=== PATIENT | female | born 2000 | race Caucasian/White ===

== ENCOUNTER 2022-03-10 06:52 | Inpatient (IN) | payer OTHER, MEDICAID ==
[2022-03-10] MEDS ORDERED: Acetaminophen 325 MG Tab PO PRN (19:37)
[2022-03-10] MEDS ORDERED: Nalbuphine 10 MG/0.5 ML Syringe IVPUSH PRN (19:37)
[2022-03-10] MEDS ORDERED: Calcium Carbonate 500 MG Tab.Chew PO PRN (19:37)
[2022-03-10] MEDS ORDERED: Lidocaine 1% 50 ML MDV INJECT ONE (19:37)
[2022-03-10] MEDS ORDERED: Ondansetron 4 MG/2 ML SDV IVPUSH PRN (19:37)
[2022-03-10] MEDS ORDERED: Oxytocin/Lactated Ringers 10 UNIT/1,000 ML BAG IV SCH (19:45)
[2022-03-10] MEDS ORDERED: Ampicillin 2 GM in Sodium Chloride 0.9% 100 ML IV ONE (20:00)
[2022-03-10] MEDS: Lactated Ringers 1,000 ML IV SCH (20:19)
[2022-03-10] MEDS: Oxytocin/Lactated Ringers 10 UNIT/1,000 ML BAG IV SCH (20:20)
[2022-03-11] MEDS ORDERED: Ropivacaine 0.2% PF 2 MG/ML 20 ML SDV ONE
[2022-03-11] MEDS: Ampicillin 1 GM in Sodium Chloride 0.9% 100 ML IV SCH ×3 (00:10→08:26)
[2022-03-11] MEDS ORDERED: fentaNYL 100 MCG/2 ML SDV EPIDUR PRN (02:54)
[2022-03-11] MEDS ORDERED: Bupivacaine/fentaNYL/NS 100 ML Bag EPIDUR PRN (02:54)
[2022-03-11] MEDS ORDERED: diphenhydrAMINE 50 MG/ML SDV IVPUSH PRN (02:54)
[2022-03-11] MEDS ORDERED: ePHEDrine 50 MG/ML SDV IVPUSH PRN (02:54)
[2022-03-11] MEDS: Lactated Ringers 1,000 ML IV SCH (03:52)
[2022-03-11] MEDS: Oxytocin/Lactated Ringers 10 UNIT/1,000 ML BAG IV SCH (06:51)
[2022-03-11] MEDS ORDERED: Lidocaine 1% 50 ML MDV ONE (06:54)
[2022-03-11] MEDS ORDERED: Acetaminophen 325 MG Tab PO PRN (08:27)
[2022-03-11] MEDS ORDERED: Oxytocin/Lactated Ringers 10 UNIT/1,000 ML BAG IV SCH (08:27)
[2022-03-11] MEDS ORDERED: Benzocaine/Menthol 20%-0.5% Spray 78 GM Cannister TOP PRN (08:27)
[2022-03-11] MEDS ORDERED: Hydrocortisone Acetate 25 MG Supp RECTAL PRN (08:27)
[2022-03-11] MEDS ORDERED: Magnesium Hydroxide 400 MG/5 ML Susp 30 ML Cup PO PRN (08:27)
[2022-03-11] MEDS ORDERED: Witch Hazel Medicated Pads 40/Jar TOP PRN (08:27)
[2022-03-11] MEDS: Prenatal Multivitamin with Calcium/Folic Acid/Iron Tab PO SCH (09:48)
[2022-03-11] MEDS: Ibuprofen 600 MG Tab PO PRN ×2 (09:48→16:58)
[2022-03-11] MEDS: Docusate Sodium 100 MG Cap PO PRN (22:14)
[2022-03-12] MEDS: Ibuprofen 600 MG Tab PO PRN ×2 (03:30→15:57)
[2022-03-12] MEDS: Prenatal Multivitamin with Calcium/Folic Acid/Iron Tab PO SCH (14:20)
[2022-03-13] MEDS: Prenatal Multivitamin with Calcium/Folic Acid/Iron Tab PO SCH (09:46)
[2022-03-13] MEDS: Ibuprofen 600 MG Tab PO PRN (09:46)
[2022-03-13] MEDS: Docusate Sodium 100 MG Cap PO PRN (09:46)
== END 2022-03-13 10:35 | disposition home or self-care (01) | DRG 807 ==
LOC: JD.OB 06:52 → OBSVTOIN 03-11 06:52 → JD.OB 03-11 06:53
PROVIDERS: ADMIT Obstetrics & Gynecology; ATTEND Obstetrics & Gynecology
PROC: 10E0XZZ Delivery of Products of Conception, External Approach (ICD-10-PCS; principal; 2022-03-11)
PROC: 0KQM0ZZ Repair Perineum Muscle, Open Approach (ICD-10-PCS; 2022-03-11)
PROC: 10907ZC Drainage of Amniotic Fluid, Therapeutic from Products of Conception, Via Natural or Artificial Opening (ICD-10-PCS; 2022-03-11)
PROC: 3E033VJ Introduction of Other Hormone into Peripheral Vein, Percutaneous Approach (ICD-10-PCS; 2022-03-11)
PROC: 0UQMXZZ Repair Vulva, External Approach (ICD-10-PCS; 2022-03-11)
PROC: 3E0R3BZ Introduction of Anesthetic Agent into Spinal Canal, Percutaneous Approach (ICD-10-PCS; 2022-03-11)
DX: O69.81X0 Labor and delivery complicated by cord around neck, without compression, not applicable or unspecified (principal); Z37.0 Single live birth; Z3A.39 39 weeks gestation of pregnancy; O70.1 Second degree perineal laceration during delivery; O99.824 Streptococcus B carrier state complicating childbirth; O99.214 Obesity complicating childbirth; Z79.82 Long term (current) use of aspirin
CPT/HCPCS: 36415; 51702; 59025; 59409; 85027; 86592; A9270-GY; J0290; J2001; J2590; J2795; J3490; J7120

== ENCOUNTER 2023-12-26 07:03 | Inpatient (IN) | payer OTHER ==
[~2023-12-26 07:03] MED LIST: Bupivacaine 0.25% 10 ML SDV ONE
[2023-12-26] MEDS ORDERED: Lidocaine 1% 50 ML MDV INJECT PRN (07:05)
[2023-12-26] MEDS ORDERED: Ondansetron 4 MG/2 ML SDV IVPUSH PRN (07:05)
[2023-12-26] MEDS ORDERED: Nalbuphine 10 MG/1 ML Vial IVPUSH PRN (07:05)
[2023-12-26] MEDS ORDERED: Sodium Chloride 0.9% 10 ML Syringe FLUSH PRN (07:05)
[2023-12-26] MEDS ORDERED: Oxytocin/0.9 % Sodium Chloride 30 UNIT/500 ML BAG IV SCH (07:15)
[2023-12-26] MEDS: Penicillin G Potassium 5 MILLUNITS in Sodium Chloride 0.9% 100 ML IV SCH (07:43)
[2023-12-26] MEDS: Lactated Ringers 1,000 ML IV SCH (07:50)
[2023-12-26 08:03] LABS: BASOPHILS PERCENT AUTO 0.1 % (0.0-1.0); EOSINOPHILS ABSOLUTE AUTO 0.1 K/mm3 (0.0-0.4); EOSINOPHILS PERCENT AUTO 1.1 % (0.0-6.0); HEMATOCRIT 36.3 % (37.0-47.0); HEMOGLOBIN 11.9 gm/dl (12.0-16.0); IMMATURE GRAN ABSOLUTE AUTO 0.03 K/mm3 (0.00-0.05); IMMATURE GRAN PERCENT AUTO 0.4 % (0.0-0.4); LYMPHOCYTES ABSOLUTE AUTO 1.3 K/mm3 (1.0-4.8); LYMPHOCYTES PERCENT AUTO 16.6 % (24.0-44.0); MEAN CORPUSCULAR HEMOGLOBIN 26.9 pg (28.0-32.0); MEAN CORPUSCULAR HGB CONC 32.8 g/dl (32.0-36.0); MEAN CORPUSCULAR VOLUME 81.9 fl (83.0-99.0); MEAN PLATELET VOLUME 9.6 fl (9.4-12.3); MONOCYTES ABSOLUTE AUTO 0.5 K/mm3 (0.0-0.8); MONOCYTES PERCENT AUTO 6.7 % (0.0-8.0); NEUTROPHILS PERCENT AUTO 75.1 % (41.0-71.0); PLATELET COUNT,PLT 157 K/mm3 (150-400); RED BLOOD CELL COUNT 4.43 M/mm3 (4.10-5.30); WHITE BLOOD CELL COUNT,WBC 7.95 K/mm3 (3.9-11.3)
[2023-12-26] MEDS: Sodium Chloride 0.9% 10 ML Syringe FLUSH SCH (09:49)
[2023-12-26] MEDS ORDERED: ePHEDrine 50 MG/ML SDV IVPUSH PRN (11:59)
[2023-12-26] MEDS ORDERED: diphenhydrAMINE 50 MG/ML SDV IVPUSH PRN (11:59)
[2023-12-26] MEDS: Penicillin G Potassium 2.5 MILLUNITS in Sodium Chloride 0.9% 100 ML IV SCH (12:12)
[2023-12-26] MEDS: Oxytocin/0.9 % Sodium Chloride 30 UNIT/500 ML BAG IV SCH ×2 (13:41→22:35)
[2023-12-26] MEDS: fentaNYL 100 MCG/2 ML SDV EPIDUR PRN (18:43)
[2023-12-26] MEDS: Bupivacaine/fentaNYL/NS 100 ML Bag EPIDUR PRN (18:43)
[2023-12-26] MEDS ORDERED: Docusate Sodium 100 MG Cap PO PRN (21:34)
[2023-12-26] MEDS: Ibuprofen 800 MG Tab PO SCH (22:30)
[2023-12-26] MEDS: Benzocaine/Menthol 20%-0.5% Spray 78 GM Cannister TOP PRN (22:42)
[2023-12-26] MEDS: Witch Hazel Medicated Pads 40/Jar TOP PRN (22:42)
[2023-12-27 06:50] LABS: BASOPHILS PERCENT AUTO 0.2 % (0.0-1.0); EOSINOPHILS ABSOLUTE AUTO 0.1 K/mm3 (0.0-0.4); EOSINOPHILS PERCENT AUTO 0.9 % (0.0-6.0); HEMATOCRIT 35.3 % (37.0-47.0); HEMOGLOBIN 11.7 gm/dl (12.0-16.0); IMMATURE GRAN ABSOLUTE AUTO 0.05 K/mm3 (0.00-0.05); IMMATURE GRAN PERCENT AUTO 0.5 % (0.0-0.4); LYMPHOCYTES ABSOLUTE AUTO 1.8 K/mm3 (1.0-4.8); LYMPHOCYTES PERCENT AUTO 15.9 % (24.0-44.0); MEAN CORPUSCULAR HEMOGLOBIN 27.4 pg (28.0-32.0); MEAN CORPUSCULAR HGB CONC 33.1 g/dl (32.0-36.0); MEAN CORPUSCULAR VOLUME 82.7 fl (83.0-99.0); MEAN PLATELET VOLUME 10.4 fl (9.4-12.3); MONOCYTES ABSOLUTE AUTO 0.9 K/mm3 (0.0-0.8); MONOCYTES PERCENT AUTO 7.7 % (0.0-8.0); NEUTROPHILS ABSOLUTE AUTO 8.3 K/mm3 (1.8-7.7); NEUTROPHILS PERCENT AUTO 74.8 % (41.0-71.0); PLATELET COUNT,PLT 172 K/mm3 (150-400); RED BLOOD CELL COUNT 4.27 M/mm3 (4.10-5.30); WHITE BLOOD CELL COUNT,WBC 11.09 K/mm3 (3.9-11.3)
[2023-12-27] MEDS: Sertraline 25 MG Tab PO SCH (08:35)
[2023-12-27] MEDS: Ibuprofen 800 MG Tab PO SCH (08:57)
[2023-12-28] MEDS: Acetaminophen 325 MG Tab PO PRN (01:56)
== END 2023-12-28 12:22 | disposition home or self-care (01) | DRG 807 ==
LOC: JD.OB 07:03 → OBSVTOIN 21:03 → JD.OB 21:04
PROVIDERS: ADMIT Obstetrics & Gynecology; ATTEND Obstetrics & Gynecology
PROC: 10E0XZZ Delivery of Products of Conception, External Approach (ICD-10-PCS; principal; 2023-12-26)
PROC: 0KQM0ZZ Repair Perineum Muscle, Open Approach (ICD-10-PCS; 2023-12-26)
PROC: 10907ZC Drainage of Amniotic Fluid, Therapeutic from Products of Conception, Via Natural or Artificial Opening (ICD-10-PCS; 2023-12-26)
PROC: 3E033VJ Introduction of Other Hormone into Peripheral Vein, Percutaneous Approach (ICD-10-PCS; 2023-12-26)
PROC: 3E0R3BZ Introduction of Anesthetic Agent into Spinal Canal, Percutaneous Approach (ICD-10-PCS; 2023-12-26)
PROC: 00HU33Z Insertion of Infusion Device into Spinal Canal, Percutaneous Approach (ICD-10-PCS; 2023-12-26)
DX: O99.42 Diseases of the circulatory system complicating childbirth (principal); Z37.0 Single live birth; O99.824 Streptococcus B carrier state complicating childbirth; O99.214 Obesity complicating childbirth; E66.01 Morbid (severe) obesity due to excess calories; I49.9 Cardiac arrhythmia, unspecified; O70.1 Second degree perineal laceration during delivery; O69.81X0 Labor and delivery complicated by cord around neck, without compression, not applicable or unspecified; O76 Abnormality in fetal heart rate and rhythm complicating labor and delivery; Z3A.39 39 weeks gestation of pregnancy
CPT/HCPCS: 36415; 51701; 59025; 59409; 85025; 86592; 86850; 86900; 86901; A9270-GY; C1758; J0665; J2540; J3010; J3490; J7120; J7999